=== PATIENT | female | born 1985 | race Hispanic/Latino ===

== ENCOUNTER 2019-08-30 10:29 | Outpatient (CLI) | payer OTHER, SELFPAY ==
[2019-08-30 11:20] LABS: Basophils Percent Auto 0.2 % (0.2-1.2); Eosinophils Absolute Auto 0.2 K/mm3 (0-0.3); Hematocrit 40.3 % (37.0-47.0); Hemoglobin 12.9 g/dL (12.0-15.0); Immature Granulocyte Absolute 0.04 K/mm3 (0.00-0.031); Immature Granulocyte Percent A 0.4 % (0-0.5); Lymphocytes Absolute Auto 2.83 K/mm3 (0.9-3.2); Lymphocytes Percent Auto 26.8 % (18.3-44.2); Mean Corpuscular Hemoglobin 26.4 pg (26-34); Mean Corpuscular Volume 82.6 fl (80-100); Mean Platelet Volume 10.5 fl (7.4-10.4); Monocytes Absolute Auto 0.6 K/mm3 (0.1-0.6); Monocytes Percent Auto 5.9 % (2.6-8.5); Neutrophils Absolute Auto 6.9 K/mm3 (1.3-6.7); Neutrophils Percent Auto 64.7 % (45.5-73.1); Platelet Count Result 275 k/mm3 (150-375); Red Blood Count 4.88 M/mm3 (4.2-5.4); Red Cell Distribution Width 13.2 % (11.5-14.5); White Blood Count 10.6 K/mm3 (4.5-10.0)
== END 2019-08-30 10:30 | disposition home or self-care (01) ==
PROVIDERS: PCP Family Medicine; Visit Provider Obstetrics & Gynecology
DX: Z01.818 Encounter for other preprocedural examination (principal); N85.2 Hypertrophy of uterus
CPT/HCPCS: 36415; 85025; 86850; 86880; 86900; 86901; 86902; 86905

== ENCOUNTER 2019-09-04 01:17 | Day surgery (SDC) | payer OTHER, SELFPAY ==
[2019-08-25 10:25] VITALS: BMI 70.9
--- NOTE | 2019-08-30 07:56 | PM.IMHP ---
H&P: HPI History of Present Illness Chief complaint: heavy bleeding, enlarge uterus, pelvic pain Narrative: Cara Valles is a 33 year old female 2 para 2 was admitted for robotic total vaginectomy bilateral salpingectomy. She has enlarged uterus prolapse and pelvic pain. She has friends with her obstetric history. She opts for definitive therapy. Ureters were 177cc by ultrasound to review risks and benefits reviewed including but not exclusive of aspiration pneumonia and transfusion, perforation of bowel, bladder, ureters need for open laparotomy post worsen. She had all questions answered asked to proceed Review of Systems Review of Systems: All systems reviewed & are unremarkable except as noted in HPI and below Meds Home Medications and Allergies Home Medications Medication Instructions Recorded Confirmed Type buspirone 10 mg PO TID 08/25/19 08/25/19 History multivitamin 1 tablet PO DAILY 08/25/19 08/25/19 History venlafaxine 75 mg PO DAILY 08/25/19 08/25/19 History Allergies Allergy/AdvReac Type Severity Reaction Status Date / Time No Known Allergies Allergy Verified 08/25/19 10:26 Exam Const: General: no acute distress Eyes: General: appearance normal, both eyes and all related structures Neck: Neck: supple and no JVD Thyroid: thyroid normal Resp: Effort & Inspection: normal respiratory effort Auscultation: clear to auscultation bilaterally Cardio: Rate: regular rate Rhythm: regular rhythm GI: Inspection: non-distended GI Palp: Yes Soft to palpation, No Tenderness to palpation present (GI) and No Guarding due to palpation present (GI) Auscultation: normal bowel sounds : General: Yes bladder normal to inspection External Female Exam: normal external appearance Speculum Exam - Vagina: normal appearance of the vagina Speculum Exam - Cervix: normal appearance of the cervix and Cervical os closed (14 weeks size,2nd degree prolapse) Skin: General skin exam: no rashes or lesions noted Extrem: General: normal to inspection and no edema Psych: Mental Status: mental status grossly normal Affect: normal affect Assessment and Plan Additional Plan impression: Enlarged uterus and pelvic pain with second-degree prolapse Plan: Robotic total vaginal rectum E bilateral salpingectomy LD
[2019-09-04] VITALS (13 sets, daily range): BP systolic 113–150; BP diastolic 64–89; PULSE 72–102; RESP 15–24; TEMP 36.4–37.3; O2SAT 91–98
[2019-09-04] MEDS: LACTATED RINGERS 1,000 ML 30 ML IV CONT ×3 (06:30→10:07)
--- NOTE | 2019-09-04 06:52 | WPDHPUPDATE1 ---
History and Physical Update Update Date/Time: 09/04/19 06:52 History and Physical has been reviewed, including an updated exam of the patient. There are NO changes in the patient's condition. Risks, benefits, and alternatives have been discussed and questions answered. Patient agrees to proceed with procedure.
--- NOTE | 2019-09-04 07:01 | WPDANESEPPF ---
Anes - Initial Pre Proc Eval Procedure: Operation Date: 09/04/19 07:30 Proposed Procedures p Robotic Assisted Total Vaginal Hysterectomy, Bilateral Salpingectomy - Jonel Bee MD Date/Time: 09/04/19 07:01 Surgeon: Jonel Bee MD Pre Op Diagnosis: heavy bleeding, enlarge uterus, pelvic pain Patient Data Age: 33 Gender: F Height: 5 ft 2 in Weight: 175.99 kg Allergies Allergy/AdvReac Type Severity Reaction Status Date / Time No Known Allergies Allergy Verified 09/04/19 06:53 Home Medications Medication Instructions Recorded Confirmed Type buspirone 10 mg PO TID 08/25/19 09/04/19 History multivitamin 1 tablet PO DAILY 08/25/19 09/04/19 History venlafaxine 75 mg PO DAILY 08/25/19 09/04/19 History hydrocodone-acetaminophen [[place]] 1 tablet PO Q4H PRN #30 tablet 09/04/19 Rx Patient hx anesthesia problems: none Family hx anesthesia problems: none PMFSH Past Medical History Medical History Anxiety Depression Super obesity Anes - Eval Final PreProcedure Day of Procedure 09/04/19 07:01 Patient weight: super morbidly obese Heart: regular rate and rhythm Lungs: decreased breath sounds Airway: Mallampati scale class II Neurological: alert and oriented Last oral intake: >/= 8 hours ASA classification: IV Emergent: no Anesthetic plan: proceed Anesthesia type and monitoring: general ETT and standard monitoring Informed Consent: The patient's anesthetic plan and its attendant risks and benefits were discussed with the patient/family/POA. Questions were solicited and answers provided to the satisfaction of the patient/family/POA.
[2019-09-04] MEDS: ceFAZolin 3 GM/D5W 100 ML 100 ML IVPB (07:28)
[2019-09-04] MEDS: KETOROLAC 30 MG/ML VIAL (*BKC) IV PUSH (09:25)
--- NOTE | 2019-09-04 09:31 | P.OP_ITS ---
Procedure Note - Detailed Date of procedure: 09/04/19 Pre-op diagnosis: heavy bleeding, enlarge uterus, pelvic pain Surgeon: Jonel Bee MD Postop diagnosis: Heavy bleeding, enlarged uterus, pelvic pain Procedure: Robotic total vaginal hysterectomy, bilateral salpingectomy Complications: None EBL: 200 Findings: Enlarged uterus normal appearing ovaries and tubes Anesthesia: General endotracheal Description of procedure the patient was prepped and draped in the normal sterile fashion and placed in the dorsal lithotomy position. Under excellent general tracheal anesthesia weighted speculum was placed in posterior fornix of vagina. Anterior lip of the cervix was grasped with a single-tooth tenaculum. The uterus sounded to 11cm. Serial dilatation with fragmented dilators performed followed by passage of the 10. KENAN. Three in half cold cup was also used. Sixteen [place] catheter was placed in the bladder draining clear urine. The remainder of the instruments removed from the vagina. The gloves were changed. A supraumbilical incision was made and the Veress needle passed in the abdomen. Abdomen was filled with CO2 gas [id number]. The 12mm trocar was advanced under direct visualization assuring no injury. Noting that the patient's morbid obesity was difficult the patient was placed in Trendelenburg. Left and right lateral quadrant incisions made and extended 8mm trocars were advanced in the abdomen under direct visualization assuring no injury. A right upper quadrant incision made the 10mm trocar advanced under direct visualization. The robot was docked. Attention was turned to the counselor dormitory. The left round ligament was grasped, burned, cut. Anterior bladder flap was formed by sharply dissecting the bladder removed caudally to the opposite round ligament which was clamped, burned, cut. The left fallopian tube was then teased from the ovary to be removed later. In like fashion the right fallopian tube was dissected away from the ovary to remove it. The left utero-ovarian ligament was then skeletonized and serially clamped, burned, cut and brought to the level of the previously cut round ligament on left in like fashion the utero-ovarian ligament was skeletonized on the right clamped, burned, cut and brought to the level of the previously cut round ligament. Cardinal broad ligaments were then serially skeletonized clamped burned cut and brought down the left side to the uterine vessels could be seen these were large and tortuous they were individually clamped, burned, cut. In like fashion the cardinal and broad ligaments on the right were sterilely clamped serially skeletonized clamped, burned, cut,. The these vessels were noted be markedly tortuous enlarged as well. Good blanching the uterus was seen a colpotomy incision was made and the cervix uterus and tubes removed through the vagina. The vagina was then closed with continuous running 0V lock from lateral edge lateral edge back to the midline. Irrigation was undertaken to clear hematuria was used on the raw surface area of the vagina. The pedicles appeared dry. The robot was undocked. The gas removed from the abdomen. The trocars removed from the abdomen. The incisions closed with 4 Monocryl and glue. All sponge, needle, instrument counts were correct. There were no immediate complications
--- NOTE | 2019-09-04 10:15 | SUR.PHASEI ---
1015 - family updated on pt's status
--- NOTE | 2019-09-04 10:42 | PC.NURSE ---
This patient, Cara Valles, was received from OR recovery per bed to room 289. Patient/family oriented to unit policies and routines
[2019-09-04] MEDS: DEXTROSE 5%/LACTATED RINGERS 1,000 ML 125 ML IV CONT (11:04)
[2019-09-04] MEDS: MORPHINE SULFATE 4 MG/ML INJ IV PUSH ×2 (11:05→16:07)
[2019-09-04] MEDS: IBUPROFEN 600 MG TABLET PO (22:04)
[2019-09-04] MEDS: DOCUSATE SODIUM 100 MG CAPSULE PO (22:06)
[2019-09-05 00:28] VITALS: BP 135/77; PULSE 82; RESP 18; TEMP 37.1; O2SAT 96
[2019-09-05 00:29] VITALS: PULSE 82; RESP 18; O2SAT 96
[2019-09-05 04:05] VITALS: BP 150/86; PULSE 84; RESP 18; TEMP 37.2; O2SAT 97
[2019-09-05] MEDS: IBUPROFEN 600 MG TABLET PO (04:09)
[2019-09-05 04:15] VITALS: PULSE 84; RESP 18; O2SAT 97
[2019-09-05 05:47] LABS: Basophils Percent Auto 0.1 % (0.2-1.2); Eosinophils Percent Auto 0.3 % (0-4.4); Hemoglobin 11.5 g/dL (12.0-15.0); Immature Granulocyte Absolute 0.08 K/mm3 (0.00-0.031); Immature Granulocyte Percent A 0.5 % (0-0.5); Lymphocytes Percent Auto 15.4 % (18.3-44.2); Mean Corpuscular HGB Conc 32.9 g/dl (32-36); Mean Corpuscular Hemoglobin 26.3 pg (26-34); Mean Corpuscular Volume 80.1 fl (80-100); Mean Platelet Volume 10.6 fl (7.4-10.4); Monocytes Absolute Auto 0.9 K/mm3 (0.1-0.6); Monocytes Percent Auto 5.8 % (2.6-8.5); Neutrophils Absolute Auto 11.6 K/mm3 (1.3-6.7); Neutrophils Percent Auto 77.9 % (45.5-73.1); Platelet Count Result 271 k/mm3 (150-375); Red Blood Count 4.37 M/mm3 (4.2-5.4); Red Cell Distribution Width 13.2 % (11.5-14.5); White Blood Count 14.9 K/mm3 (4.5-10.0)
--- NOTE | 2019-09-05 06:43 | PM.DS ---
DS: Diagnosis Admitting Diagnosis Admitting Diagnosis: Hypertrophy of uterus DS: Summary Time Spent with Patient Time attestation: Total time spent providing and/or coordinating discharge services: Exam Const: General: no acute distress Eyes: General: appearance normal, both eyes and all related structures Neck: Neck: supple and no JVD Thyroid: thyroid normal Resp: Effort & Inspection: normal respiratory effort Auscultation: clear to auscultation bilaterally Cardio: Rate: regular rate Rhythm: regular rhythm GI: Inspection: non-distended GI Palp: Yes Soft to palpation, No Tenderness to palpation present (GI) and No Guarding due to palpation present (GI) Auscultation: normal bowel sounds : General: Yes bladder normal to palpation External Female Exam: normal external appearance Speculum Exam - Vagina: normal vaginal discharge and No vaginal bleeding Speculum Exam - Cervix: nontender Bimanual exam- vagina & uterus: bladder normal to palpation and No Cervical tenderness present OB/external & speculum: No vaginal bleeding Skin: General skin exam: no rashes or lesions noted Extrem: General: normal to inspection and no edema Psych: Mental Status: mental status grossly normal Affect: normal affect DS: Data Data Completed and Pending Pending studies at discharge: Pending at discharge 09/04/19 09:30 Surgical [PTH] Routine Labs on day of discharge: Labs from last 24 hours 09/05/19 08/30/19 04:21 10:34 WBC 14.9 H RBC 4.37 Hgb 11.5 L Hct 35.0 L MCV 80.1 MCH 26.3 MCHC 32.9 RDW 13.2 Plt Count 271 MPV 10.6 H Immature Gran % (Auto) 0.5 Neut % (Auto) 77.9 H Lymph % (Auto) 15.4 L [place] % (Auto) 5.8 Eos % (Auto) 0.3 Baso % (Auto) 0.1 L Lymph # (Auto) 2.30 [place] # (Auto) 0.9 H Eos # (Auto) 0.0 Baso # (Auto) 0.0 Abs Immat Gran (auto) 0.08 H Absolute Neuts (auto) 11.6 H Absolute Nucleated RBC 0.0 Nucleated RBC % 0.0 Enhanced Crossmatch See Detail Discharge Plan Discharge Patient Disposition: Home, Self-Care Stand Alone Forms: General Discharge Instructions Follow-up/Referrals: Jonel Bee MD [Physician] - Discharge Medications: New hydrocodone-acetaminophen [[place]] 5-325 mg tablet 1 tablet PO Q4H PRN (Reason: pain) Qty: 30 RF: 0 No Action multivitamin Tablet 1 tablet PO DAILY RF: 0 buspirone 10 mg tablet 10 mg PO TID RF: 0 venlafaxine 37.5 mg tablet extended release 24hr 75 mg PO DAILY RF: 0
--- NOTE | 2019-09-05 06:44 | P.PNOB_ITS ---
OB - PN: Subj Subjective Date/time seen: 09/05/19 06:44 Patient comments: no complaints and pain well controlled OB - PN: Obj Data Labs CBC & Chem 7: 09/05/19 04:21 Labs: Laboratory Results - last 24 hr 08/30/19 09/05/19 10:34 04:21 WBC 14.9 H RBC 4.37 Hgb 11.5 L Hct 35.0 L MCV 80.1 MCH 26.3 MCHC 32.9 RDW 13.2 Plt Count 271 MPV 10.6 H Immature Gran % (Auto) 0.5 Neut % (Auto) 77.9 H Lymph % (Auto) 15.4 L [place] % (Auto) 5.8 Eos % (Auto) 0.3 Baso % (Auto) 0.1 L Lymph # (Auto) 2.30 [place] # (Auto) 0.9 H Eos # (Auto) 0.0 Baso # (Auto) 0.0 Abs Immat Gran (auto) 0.08 H Absolute Neuts (auto) 11.6 H Absolute Nucleated RBC 0.0 Nucleated RBC % 0.0 Enhanced Crossmatch See Detail OB - PN A/P Plan day: 1 Plan: discharge home and follow up 6 weeks (2 weeks) Time Spent With Patient Time: Total time spent is greater than 50% in coordination of care (as documented) at patient's floor/unit and/or counseling patient: Time with patient: less than 15 minutes Review of Systems Review of Systems: All systems reviewed & are unremarkable except as noted in HPI and below Exam Const: General: no acute distress Eyes: General: appearance normal, both eyes and all related structures Neck: Neck: supple and no JVD Thyroid: thyroid normal Resp: Effort & Inspection: normal respiratory effort Auscultation: clear to auscultation bilaterally Cardio: Rate: regular rate Rhythm: regular rhythm GI: Inspection: non-distended GI Palp: Yes Soft to palpation, No Tenderness to palpation present (GI) and No Guarding due to palpation present (GI) Auscultation: normal bowel sounds : General: Yes bladder normal to palpation External Female Exam: normal external appearance Speculum Exam - Vagina: normal vaginal discharge and No vaginal bleeding Speculum Exam - Cervix: nontender Bimanual exam- vagina & uterus: bladder normal to palpation and No Cervical tenderness present OB/external & speculum: No vaginal bleeding Skin: General skin exam: no rashes or lesions noted Extrem: General: normal to inspection and no edema Psych: Mental Status: mental status grossly normal Affect: normal affect
[2019-09-05 08:00] VITALS: BP 112/57; PULSE 80; RESP 16; TEMP 36.6; O2SAT 99
--- NOTE | 2019-09-05 09:11 | WPDANESPN ---
Anes - Prog Note Post-Op Date/Time: 09/05/19 09:11 Cardiovascular status: normal Respiratory status: normal Airway patency: baseline Mental status: baseline Post-Op hydration status: normal Vital Signs: Last Vital Signs Temp 36.6 C 09/05/19 08:00 Pulse 80 09/05/19 08:00 Resp 16 09/05/19 08:00 BP 112/57 L 09/05/19 08:00 Pulse Ox 99 09/05/19 08:00 I/O: Intake & Output 09/04/19 09/05/19 09/05/19 23:59 07:59 15:59 Intake Total 1000 640 Output Total 1375 2200 Balance -375 -1560 Laboratory Tests 09/05/19 04:21 08/30/19 09/05/19 10:34 04:21 WBC 14.9 H RBC 4.37 Hgb 11.5 L Hct 35.0 L MCV 80.1 MCH 26.3 MCHC 32.9 RDW 13.2 Plt Count 271 MPV 10.6 H Immature Gran % (Auto) 0.5 Neut % (Auto) 77.9 H Lymph % (Auto) 15.4 L [place] % (Auto) 5.8 Eos % (Auto) 0.3 Baso % (Auto) 0.1 L Lymph # (Auto) 2.30 [place] # (Auto) 0.9 H Eos # (Auto) 0.0 Baso # (Auto) 0.0 Abs Immat Gran (auto) 0.08 H Absolute Neuts (auto) 11.6 H Absolute Nucleated RBC 0.0 Nucleated RBC % 0.0 Enhanced Crossmatch See Detail Post-procedural complaints: none Patient Feedback: Patient satisfied with anesthetic care.
[2019-09-05] MEDS: DOCUSATE SODIUM 100 MG CAPSULE PO (09:29)
[2019-09-05] MEDS: ENOXAPARIN 40 MG/0.4 ML SYRINGE SUB-Q (09:30)
== END 2019-09-05 09:58 | disposition home or self-care (01) ==
LOC: ANHSURGERY 06:54 → ANHOB2 10:44
PROVIDERS: PCP Family Medicine; Visit Provider Obstetrics & Gynecology
PROC: (CPT 58552; principal; 2019-09-04 07:30)
DX: N93.9 Abnormal uterine and vaginal bleeding, unspecified (principal); N80.0 Endometriosis of uterus; D25.0 Submucous leiomyoma of uterus; N73.6 Female pelvic peritoneal adhesions (postinfective); R10.2 Pelvic and perineal pain; F41.8 Other specified anxiety disorders; E66.01 Morbid (severe) obesity due to excess calories; Z68.43 Body mass index [BMI] 50.0-59.9, adult
CPT/HCPCS: 58552; S2900; 36415; 85025; 86922; 88307; 99199; A9270; J0330; J0690; J1100; J1170; J1650; J1885; J2250; J2270; J2405; J2704; J2710; J3010; J7030; J7120; J7121

== ENCOUNTER → 2023-06-11 08:08 | Outpatient (CLI) | payer OTHER, SELFPAY ==
--- NOTE | ~2023-06-11 | MMUS_ITS ---
EXAMINATION: MM diagnostic katie BI w anne, US breast LT limited HISTORY: Palpable left breast abnormality TECHNIQUE: Additional 3-D tomosynthesis images of the breasts were performed and synthetic 2-D images were generated. CAD analysis was submitted and interpreted. High resolution Limited left breast ultr asound was performed. COMPARISON: No prior studies for comparison. BREAST PARENCHYMAL COMPOSITION: BI-RADS CATEGORY 1 - NEGATIVE FINDINGS: MAMMOGRAPHIC FINDINGS: There are no suspicious masses, calcifications or architectural distortion in either breast to sugges t malignancy. ULTRASOUND: Limited left breast ultrasound: At 11:00, 8 cm from the nipple there is a 8 mm simple cyst. No suspic ious left breast masses to suggest malignancy. IMPRESSION: 1. No evidence for malignancy in either breast. 2. Routine yearly screening mammogram and regular clinical breast examination are recommended. BI-RADS Category 2: Benign finding(s). Reviewed, dictated and finalized at location A. P[facility]ER IMPRESSION: 1. No evidence for malignancy in either breast. 2. Routine yearly screening mammogram and regular clinical breast examination a re recommended. BI-RADS Category 2: Benign finding(s).
== END ==
PROVIDERS: PCP Family Medicine; Visit Provider Nurse Practitioner Obstetrics & Gynecology
DX: N63.20 Unspecified lump in the left breast, unspecified quadrant (principal)
CPT/HCPCS: 76642; 77062; 77066; G0279